=== PATIENT | female | born 1990 | race African-American/Black ===

== ENCOUNTER 2016-12-08 16:50 | Emergency (ER) | payer MEDICAID ==
[~2016-12-08] VITALS: Ht 154.9 cm; Wt 54.0 kg
[~2016-12-08 16:50] MED LIST: PREN-129 OR
[2016-12-08 16:54] VITALS: BP 133/88
== END 2016-12-08 22:46 | disposition left against medical advice (07) ==
LOC: ER 16:55
DX: Z76.1 Encounter for health supervision and care of foundling (principal); Z32.00 Encounter for pregnancy test, result unknown
CPT/HCPCS: 36415; 84702

== ENCOUNTER 2017-11-16 07:34 | Emergency (ER) | payer MEDICAID ==
[~2017-11-16] VITALS: Ht 154.9 cm; Wt 54.4 kg
[2017-11-16 07:37] VITALS: BP 131/89
[2017-11-16] MEDS ORDERED: KETOROLAC TROMETH 60MG/2ML VIAL IM ONE (08:30)
== END 2017-11-16 09:45 | disposition home or self-care (01) ==
LOC: ER 07:34 → EDBD 07:34 → ER 09:44
DX: S39.012A Strain of muscle, fascia and tendon of lower back, initial encounter (principal); X50.3XXA Overexertion from repetitive movements, initial encounter; Y93.89 Activity, other specified; Y99.8 Other external cause status; Y92.89 Other specified places as the place of occurrence of the external cause
CPT/HCPCS: 72100; 96372; 99284; J1885

== ENCOUNTER 2023-06-06 10:15 | Emergency (ER) | payer MEDICAID ==
[~2023-06-06] VITALS: Ht 154.9 cm; Wt 65.9 kg
[2023-06-06 11:01] LABS: Basophils # (auto) 0 10 ^3/uL (0-0.2); Basophils % (auto) 0.4 % (0.0-2.0); Eosinophils # (auto) 0.1 10 ^3/uL (0-0.8); Eosinophils % (auto) 1.5 % (0.0-7.0); Hemoglobin 13.9 g/dL (12.2-16.2); Lymphocytes # (auto) 3.2 10 ^3/uL (0.4-5.4); Lymphocytes % (auto) 41.2 % (10.0-50.0); Mean Corpuscular Hemoglobin 28.8 pg (28.0-32.0); Mean Corpuscular Hgb Conc. 33.1 g/dL (32.0-36.0); Mean Corpuscular Volume 86.9 fL (80.0-100.0); Monocytes # (auto) 0.5 10 ^3/uL (0-1.3); Monocytes % (auto) 6.6 % (0.0-12.0); Neutrophils # (auto) 3.9 10 ^3/uL (1.6-8.6); Neutrophils % (auto) 50.3 % (37.0-80.0); Nucleated Red Blood Cells % 0.2 %; Red Blood Cells 4.84 10^6/uL (4.0-5.20); White Blood Cell 7.8 10^3/uL (4.4-10.8)
[2023-06-06 11:27] LABS: Alanine Aminotransferase 17 U/L (7-40); Albumin 4.5 g/dL (3.2-4.8); Alkaline Phosphatase 62 U/L (46-116); Anion Gap 4 (5-15); Aspartate Aminotransferase 16 U/L (13-40); BUN/Creatinine Ratio 12.2 (10.0-20.0); Bilirubin, Total 0.5 mg/dL (0.2-1.0); Blood Urea Nitrogen 9 mg/dL (9-23); Calcium 9.7 mg/dL (8.7-10.4); Carbon Dioxide 28 mmol/L (20-30); Chloride 109 mmol/L (98-107); Glucose 85 mg/dL (74-106); Sodium 141 mmol/L (136-145); Total Protein 7.1 g/dL (5.7-8.2)
[2023-06-06 13:06] VITALS: BP 120/60; PULSE 69; RESP 18; TEMP 97.8; O2SAT 98
== END 2023-06-06 13:06 | disposition home or self-care (01) ==
LOC: ER 10:15
DX: R07.89 Other chest pain (principal); Z79.899 Other long term (current) drug therapy
CPT/HCPCS: 36415; 71045; 80053; 83735; 84484; 85025; 93005

== ENCOUNTER 2025-02-22 09:42 | Emergency (ER) | payer MEDICAID ==
[~2025-02-22] VITALS: Ht 154.9 cm; Wt 72.2 kg
--- NOTE | 2025-02-22 09:53 | ECG ---
[facility] Test Date: 2025-02-22 Test Time: 09:51:11 Pat Name: MARY BACK Department: ED Room: Gender: F Licensed Acupuncturist: SAW : 1990 Requested By: HUNTER CAMPBELL Order Number: [id number] Reading MD: Gabino Oro Measurements Intervals [place] Rate: 76 P: 11 GA: 130 QRS: 45 QRSD: 91 T: 12 QT: 368 QTc: 414 Interpretive Statements Sinus rhythm Atrial premature complex Low voltage, precordial leads Electronically Signed On 02-22-2025 10:33:38 PST by Gabino Oro Please click the below link to view image of tracing.
[2025-02-22 10:08] LABS: Hematocrit 41.2 % (36.0-46.0); Hemoglobin 13.4 g/dL (12.2-16.2); Mean Corpuscular Hemoglobin 28.0 pg (28.0-32.0); Mean Corpuscular Volume 86.1 fL (80.0-100.0); Nucleated Red Blood Cells % 0.0 %
[2025-02-22 10:23] LABS: Chloride 106 mmol/L (98-107); Potassium 4.0 mmol/L (3.5-5.1); Sodium 139 mmol/L (136-145)
[2025-02-22 10:24] LABS: Anion Gap 9 (5-15); Calcium 9.6 mg/dL (8.7-10.4); Carbon Dioxide 24 mmol/L (20-31)
[2025-02-22 10:29] LABS: BUN/Creatinine Ratio 10.1 (10.0-20.0); Glucose 100 mg/dL (74-106)
[2025-02-22 10:32] LABS: Blood Urea Nitrogen 9 mg/dL (9-23)
--- NOTE | 2025-02-22 11:06 | ED.PDOC ---
HPI Comments 34 y.o female presents to the ED for a chief complaint of mid sternal chest pain associated with mid upper back pain, nausea and SOB that started 2 weeks ago. Patient describes pain as sharp, constant, and has no alleviating factors. Patient reports similar episode in the past however did not get evaluated for symptoms then. She denies any previous cardiac history, vomiting, fever, chills, leg swelling. Chief Complaint: Chest Pain Time Seen by MD: 11:01 Primary Care Provider: FLROESITA Diggs Notes: Nurses Notes, Medications, Allergies Allergies: Coded Allergies: NO KNOWN ALLERGIES (Unverified , 05/21/13) Home Meds Reported Medications Vit W/ Ferrous Fumara () Tab, 1 TAB OR DAILY, TAB 07/08/13 Information Source: Patient Mode of Arrival: Ambulatory Severity: Moderate Timing: Weeks (2) Duration: Since onset Location: Substernal Radiation: Back Quality: Sharp Onset: At Rest Cardiac Risk Factors: None PE Risk Factors: None History of: Similar pain in past Modifying Factors: Nothing Associated Signs and Symptoms: SOB, N/V Past Medical History PAST MEDICAL HISTORY: Denies 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 History Family History Family History: Unknown Social History Smoker: Non-Smoker Alcohol: Denies ETOH Use Drugs: Denies Drug Use Lives In: Home Constitutional: denies: chills, diaphoresis, fatigue, fever, malaise, sweats, weakness, others EENTM: denies: blurred vision, double vision, ear bleeding, ear discharge, ear drainage, ear pain, ear ringing, eye pain, eye redness, hearing loss, mouth pain, mouth swelling, nasal discharge, nose bleeding, nose congestion, nose pain, photophobia, tearing, throat pain, throat swelling, voice changes, others Respiratory: reports: SOB at rest, shortness of breath; denies: cough, hemoptysis, orthopnea, SOB with excertion, stridor, wheezing, others Cardiovascular: reports: chest pain; denies: dizzy spells, diaphoresis, Dyspnea on exertion, edema, irregular heart beat, left arm pain, lightheadedness, palpitations, PND, syncope, others Gastrointestinal: reports: nausea; denies: abdomen distended, abdominal pain, blood streaked bowels, constipated, diarrhea, dysphagia, difficulty swallowing, hematemesis, melena, poor appetite, poor fluid intake, rectal bleeding, rectal pain, vomiting, others Genitourinary: denies: abnormal vagina bleeding, burning, dyspareunia, dysuria, flank pain, frequency, hematuria, incontinence, pain, , vagina discharge, urgency, others Neurological: denies: dizziness, fainting, headache, left sided numbness, left sided weakness, numbness, paresthesia, pre-existing deficit, right sided numbness, right sided weakness, seizure, speech problems, tingling, tremors, weakness, others Musculoskeletal: reports: back pain; denies: gout, joint pain, joint swelling, muscle pain, muscle stiffness, neck pain, others Integumetry: denies: bruises, change in color, change in hair/nails, dryness, laceration, lesions, lumps, rash, wounds, others Allergic/Immunocompromised: denies: Difficulty Healing, Frequent Infections, Hives, Itching, others Hematologic/Lymphatic: denies: anemia, blood clots, easy bleeding, easy bruising, swollen glands, others Endocrine: denies: excessive hunger, excessive sweating, excessive thirst, excessive urination, flushing, intolerance to cold, intolerance to heat, unexplained weight gain, unexplained weight loss, others Psychiatric: denies: anxiety, bipolar disorder, depression, hopeless, panic disorder, schizophrenia, sleepless, suicidal, others All Other Systems: Reviewed and Negative Physical Exam General Appearance: No Apparent Distress, Normal HEENT: Normal ENT Inspection, Pharynx Normal, TMs Normal Neck: Full Range of Motion, Non-Tender, Normal, Normal Inspection Respiratory: Chest Non-Tender, Lungs Clear, No Accessory Muscle Use, No Respiratory Distress, Normal Breath Sounds Cardiovascular: No Edema, No JVD, No Murmur, No Gallop, Normal Peripheral Pulses, Regular Rate/Rhythm Breast Exam: Deferred Gastrointestinal: No Organomegaly, Non Tender, No Pulsatile Mass, Normal Bowel Sounds, Soft Genitalia: Deferred Pelvic: Deferred Rectal: Deferred Extremities: No calf tenderness, Normal capillary refill, Normal inspection, Normal range of motion, Non-tender, No pedal edema Musculoskeletal : Apperance: Normal Neurologic: Alert, production underwriter II-XII nml as Tested, No Motor Deficits, Normal Affect, Normal Mood, No Sensory Deficits Cerebellar Function: Normal Reflexes: Normal Skin: Dry, Normal Color, Warm Lymphatic: No Adenopathy Was a procedure done? Was a procedure done?: No CP Differential Dx Differential Diagnosis: N/A Differential Diagnosis: Angina, Chest Wall Pain, Cholelithiasis, Costochondritis, Esophageal reflux/spasm, Gastritis, Myocardial Infarction, Pericarditis X-Ray, Labs, Meds, VS Vital Signs Date Time Temp Pulse Resp B/P (MAP) Pulse Ox O2 Delivery O2 Flow Rate FiO2 02/22/25 12:44 74 02/22/25 12:12 98.7 81 14 125/75 (92) 97 98.7 02/22/25 10:46 76 02/22/25 09:51 76 02/22/25 09:44 98.0 89 20 140/90 100 98.0 Lab Test 02/22/25 12:55 02/22/25 12:32 02/22/25 10:52 02/22/25 09:56 Range/Units Troponin I High Sensitivity < 3 L < 3 L < 3 L </=34 ng/L Urine Test Negative Negative White Blood Count 10.1 4.4-10.8 10^3/uL Red Blood Count 4.78 4.0-5.20 10^6/uL Hemoglobin 13.4 12.2-16.2 g/dL Hematocrit 41.2 36.0-46.0 % Mean Corpuscular Volume 86.1 80.0-100.0 fL Mean Corpuscular Hemoglobin 28.0 28.0-32.0 pg Mean Corpuscular Hemoglobin Concent 32.6 32.0-36.0 g/dL Red Cell Distribution Width 14.2 11.8-14.3 % Platelet Count 296 140-450 10^3/uL Mean Platelet Volume 8.2 6.9-10.8 fL Neutrophils (%) (Auto) 58.5 37.0-80.0 % Lymphocytes (%) (Auto) 32.2 10.0-50.0 % Monocytes (%) (Auto) 6.2 0.0-12.0 % Eosinophils (%) (Auto) 2.5 0.0-7.0 % Basophils (%) (Auto) 0.6 0.0-2.0 % Neutrophils # (Auto) 5.9 1.6-8.6 10 ^3/uL Lymphocytes # (Auto) 3.3 0.4-5.4 10 ^3/uL Monocytes # (Auto) 0.6 0-1.3 10 ^3/uL Eosinophils # (Auto) 0.3 0-0.8 10 ^3/uL Basophils # (Auto) 0.1 0-0.2 10 ^3/uL Nucleated Red Blood Cells 0.0 % Sodium Level 139 136-145 mmol/L Potassium Level 4.0 3.5-5.1 mmol/L Chloride Level 106 98-107 mmol/L Carbon Dioxide Level 24 20-31 mmol/L Anion Gap 9 5-15 Blood Urea Nitrogen 9 9-23 mg/dL Creatinine 0.89 0.550-1.02 mg/dL Glomerular Filtration Rate Calc 87 >90 mL/min BUN/Creatinine Ratio 10.1 10.0-20.0 Serum Glucose 100 74-106 mg/dL Calcium Level 9.6 8.7-10.4 mg/dL Time of 1ST Reevaluation: 11:05 Reevaluation 1ST: Unchanged Patient Education/Counseling: Diagnosis, Treatment, Prognosis Family Education/Counseling: No Family Present SEPSIS Sepsis Screen Date sepsis recognized/suspect: Feb 22, 2025 Time Sepsis recognized/suspect: 945 Recent Procedure: No On Antibiotic Therapy: No Respiratory Rate >20: No Heart Rate >90: No Temp<36 C (96.8 F) or >38.3 C: No SBP <90 or MAP <65 mmHG: No New Acute Mental Status Change: No Is the patient on CPAP, BIPAP,: No Physician Orders Electrocardigram (02/22/25 09:47) Chest Xray 1 View (02/22/25 09:47) Electrocardigram (02/22/25 10:47) Electrocardigram (02/22/25 12:47) Vital Signs Date Time Temp Pulse Resp B/P (MAP) Pulse Ox O2 Delivery O2 Flow Rate FiO2 02/22/25 12:44 74 02/22/25 12:12 98.7 81 14 125/75 (92) 97 98.7 02/22/25 10:46 76 02/22/25 09:51 76 02/22/25 09:44 98.0 89 20 140/90 100 98.0 Laboratory Tests Test 02/22/25 09:56 White Blood Count 10.1 10^3/uL (4.4-10.8) Departure 1 Departure Time of Disposition: 14:45 (Patient presented with chest pain that was concerning for possible STEMI, ACS, PE, Pneumonia, Muscle Strain, COPD, D issection. Data: 1. I ordered and reviewed the result of at least 3 labs including a CBC, BMP, and Troponin. 2. I independently interpreted the following tests: EKG which shows normal sinus rhythm and Chest X-ray which shows a benign chest.Risk:This patient presented with a high risk of morbidity due to further diagnostic testing or treatment and may suffer from an acute cardiac or respiratory disorder. After review of all the data patient is unlikely to have a pe , dissection, and is low risk for acs. Patient is stable at this time.Workup so far is benign and patient will be discharged with outpatient followup. ) Impression: Primary Impression: Acute chest pain Disposition: HOME / SELF CARE / HOMELESS Condition: Stable Additional Instructions: You presented today with chest pain. Your workup today was benign including labs, troponin, EKG, chest x-ray. Your pain may be from musculoskeletal strain, acid reflux, anxiety, or many other factors. It is important to follow up with your regular doctor within 1 week. If your symptoms worsen or you have any other concerns please return to the emergency room. Discharged With: Self Critical Care Note Critical Care Time?: No Stability Stability form required: No Heart Score Heart Score: Heart Score Response (Comments) Value History Slightly Suspicious 0 EKG Normal 0 Age <45 0 Risk Factors No known risk factors 0 Troponin Normal limit 0 Total 0 I personally scribed for HUNTER CAMPBELL MD ([email or web address]) on 02/22/25 at 11:06. Electronically submitted by Ann-Marie Prince ([facility]). HUNTER CAMPBELL MD Feb 22, 2025 11:06
--- NOTE | 2025-02-22 13:27 | DVH ---
CHEST RADIOGRAPH Indication: CHEST PAIN Technique: Single frontal view of the chest was obtained Comparison: XY CHEST PORTABLE on DOS: 06/06/23 FINDINGS: Lines and Tubes: None Lungs: No focal consolidation. Pleura: No effusion. No pneumothorax. Cardiomediastinal contours: Unremarkable Bones: No acute osseous abnormality. IMPRESSION: 1. No acute cardiopulmonary disease. 2. No significant change from 06/06/2023.
[2025-02-22 15:14] VITALS: BP 127/82; PULSE 92; RESP 18; TEMP 98.2; O2SAT 98
[2025-02-22] MEDS: ONDANSETRON ODT 4 MG TAB PO ONE (15:21)
[2025-02-22] MEDS: FAMOTIDINE 20 MG TAB PO ONE (15:23)
[2025-02-22] MEDS: MAALOX PLUS or MAALOX 30 ML PO ONE (15:24)
--- NOTE | 2025-02-23 10:10 | ECG ---
[facility] Test Date: 2025-02-22 Test Time: 10:46:39 Pat Name: MARY BACK Department: ED Room: Gender: F Nurse Emergency: JOE : 1990 Requested By: HUNTER CAMPBELL Order Number: [id number] Reading MD: Gabino Oro Measurements Intervals [place] Rate: 76 P: 11 NC: 124 QRS: 49 QRSD: 88 T: 15 QT: 365 QTc: 411 Interpretive Statements Sinus rhythm Low voltage, precordial leads Electronically Signed On 02-23-2025 10:37:24 PST by Gabino Oro Please click the below link to view image of tracing.
--- NOTE | 2025-02-25 08:09 | ECG ---
[facility] Test Date: 2025-02-22 Test Time: 12:44:30 Pat Name: MARY BACK Department: ED Room: Gender: F Director Internal Communications: ALEYDA : 1990 Requested By: HUNTER CAMPBELL Order Number: [id number] Reading MD: Gabino Oro Measurements Intervals [place] Rate: 74 P: -16 MO: 124 QRS: 36 QRSD: 96 T: 1 QT: 366 QTc: 406 Interpretive Statements Sinus rhythm Low voltage, precordial leads Electronically Signed On 02-27-2025 17:40:59 PST by Gabino Oro Please click the below link to view image of tracing.
== END 2025-02-22 15:42 | disposition home or self-care (01) ==
LOC: ER 09:44
DX: R07.2 Precordial pain (principal); Z98.890 Other specified postprocedural states
CPT/HCPCS: 36415; 71045; 80048; 81025; 84484; 85025; 93005